=== PATIENT | female | born 1955 | race Caucasian/White ===

== ENCOUNTER 2017-05-19 09:13 | Inpatient (IN) | payer SELFPAY ==
[2017-05-19] VITALS (10 sets, daily range): BP systolic 129–159; BP diastolic 85–100; PULSE 63–131; RESP 16–20; TEMP 98.2–98.6; O2SAT 98–100
[~2017-05-19 09:13] MED LIST: HYDR-2374 PO; LEVA750T PO; LISI-360 PO; LORTA5 PO; METR-1 PO
[2017-05-19] MEDS ORDERED: HYDR-3583 PO (09:28)
[2017-05-19] MEDS ORDERED: SODIUM CHLORIDE 0.9% FLUSH 10 ML FLUSH IVF PRN (09:30)
[2017-05-19] MEDS ORDERED: ASPIRIN 81 MG CHEW TAB PO ONE (09:30)
--- NOTE | 2017-05-19 09:56 | RADRPT ---
EXAM DATE/TIME: 05/19/2017 09:38 [place] COMPARISON: No previous studies available for comparison. INDICATIONS : Short of breath, heart racing. MEDICAL HISTORY : Hypertension. SURGICAL HISTORY : None. ENCOUNTER: Initial ACUITY: 1 day PAIN SCORE: 0/10 LOCATION: Bilateral chest FINDINGS: A single view of the chest demonstrates the lungs to be symmetrically aerated without evidence of mas s, infiltrate or effusion. The cardiomediastinal contours are unremarkable. Osseous structures are intact. CONCLUSION: Normal examination. 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 Red Grimm MD on May 19, 2017 at 9:55 Board Certified Radiologist. This report was verified electronically.
--- NOTE | 2017-05-19 10:00 | PD ---
HPI . Rapid heart rate Chief Complaint: Cardiac Complaint Time Seen by Provider: 09:30 Travel History International Travel<30 days: No Contact w/Intl Traveler<30days: No Traveled to known affect area: No History of Present Illness HPI This patient presents with chief complaint of a rapid heart rate. Onset was about 11:30 PM. It was associated with some shortness of breath. She also reports tingling of her fingertips and dizziness. She states that almost all of her symptoms are now resolved. She states that they started getting better about an hour ago when she decided to come to the hospital to get checked out. She states that her only residual symptom at this point is nervousness. She reports some previous similar episodes which were short-lived. She did not seek medical care for them. The patient reports no noted modifying factors. She states that the symptoms were severe for her now resolved. PFSH Past Medical History Arthritis: Yes (RHEUM SPINE) Cardiovascular Problems: Yes Endocrine: No Gastrointestinal Disorders: No Genitourinary: No Hypertension: Yes Musculoskeletal: Yes Neurologic: No Reproductive: Yes (ABNORMAL BREAST EXAMS) Respiratory: No Past Surgical History Appendectomy: Yes Section: Yes Other Surgery: No Social History Alcohol Use: Yes (2-3 DRINKS SOCIALLY) Tobacco Use: Yes (1 PPD) Substance Use: No Allergies-Medications (Allergen,Severity, Reaction): Coded Allergies: No Known Allergies (Unverified , 05/19/17) Reported Meds & Prescriptions Reported Meds & Active Scripts Active Reported Hydrocodone-Acetaminophen 10-325 mg Tab 1 Tab PO Q4H PRN Review of Systems Except as stated in HPI: all other systems reviewed are Neg General / Constitutional: No: Fever, Chills Eyes: No: Blurred Vision HENT: Positive: Lightheadedness, No: Headaches Cardiovascular: Positive: Chest Pain or Discomfort Respiratory: Positive: Shortness of Breath Gastrointestinal: No: Nausea, Vomiting Musculoskeletal: Positive: Pain (chronic low back pain) Neurologic: Positive: Paresthesia Psychiatric: Positive: Anxiety Physical Exam Narrative GENERAL: This patient is awake and alert and in no acute distress. SKIN: Warm and dry. The skin is slightly thickened and wrinkle compatible with skilled nursing sun exposure. HEAD: Atraumatic. Normocephalic. EYES: Pupils equal and round. Extraocular movements are intact. ENT: No nasal bleeding or discharge. Mucous membranes pink and moist. NECK: Trachea midline. Neck is supple. CARDIOVASCULAR: Regular rhythm with a sinus tachycardia at about 110. RESPIRATORY: No accessory muscle use. Lungs are clear with full air movement throughout. GASTROINTESTINAL: Abdomen soft, non-tender, nondistended. MUSCULOSKELETAL: No obvious deformities. No edema. NEUROLOGICAL: Awake and alert. No obvious cranial nerve deficits. Motor grossly within normal limits. Normal speech. PSYCHIATRIC: Appropriate mood and affect; insight and judgment normal. Data Data Last Documented VS Vital Signs Date Time Temp Pulse Resp B/P Pulse Ox O2 Delivery O2 Flow Rate FiO2 05/19/17 09:49 101 17 129/88 98 Room Air 05/19/17 09:29 98.6 Orders Ckmb (Isoenzyme) Profile (05/19/17 09:30) Complete Blood Count With Diff (05/19/17 09:30) Comprehensive Metabolic Panel (05/19/17 09:30) D-Dimer (05/19/17 09:30) Magnesium (Mg) (05/19/17 09:30) Prothrombin Time / Inr (Pt) (05/19/17 09:30) Act Partial Throm Time (Ptt) (05/19/17 09:30) Troponin I (05/19/17 09:30) Chest, Single Ap (05/19/17 09:30) Ecg Monitoring (05/19/17 09:30) Iv Access Insert/Monitor (05/19/17 09:30) Oximetry (05/19/17 09:30) Aspirin Chew (Aspirin Chew) (05/19/17 09:30) Sodium Chloride 0.9% Flush (Ns Flush) (05/19/17 09:30) Thyroid Stimulating Hormone (05/19/17 09:30) Holter Monitor Recording (05/19/17 ) CKMB (05/19/17 09:35) CKMB% (05/19/17 09:35) Heparin Infusion TRAMAINE.Q1H (05/19/17 10:39) Heparin Inj (Heparin Inj) (05/19/17 10:45) Heparin Inj (Heparin Inj) (05/19/17 16:45) Heparin Inj (Heparin Inj) (05/19/17 16:45) Heparin-D5w Inj (Heparin-D5w Inj) (05/19/17 10:45) Act Partial Throm Time (Ptt) (05/19/17 10:39) Cbc No Diff, Includes Plts (05/19/17 10:39) Cbc No Diff, Includes Plts (05/22/17 06:00) Act Partial Throm Time (Ptt) (05/19/17 17:39) Occult Blood (Hemoccult) Stool (05/19/17 10:39) Metoprolol Tartrate (Lopressor) (05/19/17 10:45) Diet Npo Except Meds (05/19/17 Lunch) Labs Laboratory Tests Test 05/19/17 09:35 White Blood Count 8.8 TH/MM3 Red Blood Count 3.99 MIL/MM3 Hemoglobin 15.3 GM/DL Hematocrit 45.1 % Mean Corpuscular Volume 113.0 FL Mean Corpuscular Hemoglobin 38.2 PG Mean Corpuscular Hemoglobin 33.8 % Concent Red Cell Distribution Width 16.7 % Platelet Count 242 TH/MM3 Mean Platelet Volume 8.6 FL Neutrophils (%) (Auto) 66.7 % Lymphocytes (%) (Auto) 21.6 % Monocytes (%) (Auto) 7.4 % Eosinophils (%) (Auto) 0.1 % Basophils (%) (Auto) 4.2 % Neutrophils # (Auto) 5.8 TH/MM3 Lymphocytes # (Auto) 1.9 TH/MM3 Monocytes # (Auto) 0.7 TH/MM3 Eosinophils # (Auto) 0.0 TH/MM3 Basophils # (Auto) 0.4 TH/MM3 CBC Comment DIFF FINAL Differential Comment Prothrombin Time 11.4 SEC Prothromb Time International 1.0 RATIO Ratio Activated Partial 26.8 SEC Thromboplast Time D-Dimer Quantitative (PE/DVT) 0.30 MG/L FEU Sodium Level 140 MEQ/L Potassium Level 3.2 MEQ/L Chloride Level 104 MEQ/L Carbon Dioxide Level 27.1 MEQ/L Anion Gap 9 MEQ/L Blood Urea Nitrogen 8 MG/DL Creatinine 0.82 MG/DL Estimat Glomerular Filtration 71 ML/MIN Rate Random Glucose 117 MG/DL Calcium Level 8.3 MG/DL Magnesium Level 1.0 MG/DL Total Bilirubin 3.2 MG/DL Aspartate Amino Transf 135 U/L (AST/SGOT) Alanine Aminotransferase 59 U/L (ALT/SGPT) Alkaline Phosphatase 119 U/L Total Creatine Kinase 155 U/L Creatine Kinase MB 12.2 NG/ML Troponin I 1.01 NG/ML Total Protein 7.3 GM/DL Albumin 4.1 GM/DL Thyroid Stimulating Hormone 1.190 uIU/ML 3rd Gen [facility] Medical Decision Making Medical Screen Exam Complete: Yes Emergency Medical Condition: Yes Medical Record Reviewed: Yes (this patient has no significant chronic medical issues.) Interpretation(s) EKG shows a sinus rhythm with a ventricular rate of 107. Poor R-wave progression. No acute ischemic changes. She has no previous EKGs for comparison. Differential Diagnosis Differential diagnosis of palpitations includes but is not limited to anxiety, SVT, aVF with RVR, VT, sinus tachycardia, PVCs Narrative Course This patient presents with chief complaint of a rapid heart rate which lasted all night long. It has now resolved. She had some associated shortness of breath and paresthesias of her fingertips. I suspect either PSVT has now spontaneously resolved or anxiety. I have initiated a cardiac workup here in the emergency department. This includes a TSH. I have ordered a Holter monitor in anticipation of discharge. CBC & BMP Diagram 05/19/17 09:35 All of her LFTs are elevated. Troponin is 1.01. TSH is normal. D-dimer is normal. This patient has had a NSTEMI. Critical Care Narrative Aggregate critical care time was 30 minutes. Time to perform other separately billable procedures was not included in the critical care time. My time did not include minutes spent treating any other patients simultaneously or on activities that did not directly contribute to the patient's treatment. The services I provided to this patient were to treat and/or prevent clinically significant deterioration due to NSTEMI I provided critical care services requiring my management, as noted below: Chart data review, documentation time, medication orders and management, vital sign assessments/reviewing monitor data, ordering and reviewing lab tests, ordering and interpreting/reviewing x-rays and diagnostic studies, care of the patient and discussion of the patient with the admitting physicians Physician Communication Physician Communication Discussed with Dr. Lr. He will plan to take her to the catheter lab today. He has asked me to keep her nothing by mouth. She needs to be admitted to [facility]. She will be heparinized and will be given a first dose of metoprolol. She has already had aspirin. Dr. Thomas will admit. Diagnosis Primary Impression: Tachycardia Additional Impression: NSTEMI (non-ST elevated myocardial infarction) Admitting Information Admitting Physician Requests: Admit Patient Instructions: General Instructions, Supraventricular Tachycardia (DC) Condition: Stable Shannon Zabala MD May 19, 2017 10:00
[2017-05-19 10:03] LABS: AUTOMATED NEUTROPHIL # 5.8 TH/MM3 (1.8-7.7); BASOPHIL # 0.4 TH/MM3 (0-0.2); BASOPHIL % 4.2 % (0.0-2.0); EOSINOPHIL % 0.1 % (0.0-4.0); HEMATOCRIT 45.1 % (35.0-46.0); HEMO FLAGS DIFF FINAL; LYMPH % 21.6 % (9.0-44.0); LYMPHOCYTE # 1.9 TH/MM3 (1.0-4.8); MEAN CORPUSCULAR HEMOGLOBIN 38.2 PG (27.0-34.0); MEAN CORPUSCULAR HGB CONC 33.8 % (32.0-36.0); MONO % 7.4 % (0.0-8.0); NEUT % 66.7 % (16.0-70.0); PLATELET COUNT 242 TH/MM3 (150-450); RED BLOOD COUNT 3.99 MIL/MM3 (4.00-5.30); RED CELL DISTRIBUTION WIDTH 16.7 % (11.6-17.2); WHITE BLOOD COUNT 8.8 TH/MM3 (4.0-11.0)
[2017-05-19 10:15] LABS: CHLORIDE 104 MEQ/L (98-107); POTASSIUM 3.2 MEQ/L (3.5-5.1); SODIUM (NA) 140 MEQ/L (136-145)
[2017-05-19 10:18] LABS: ANION GAP 9 MEQ/L (5-15); BICARBONATE 27.1 MEQ/L (21.0-32.0); BLOOD UREA NITROGEN 8 MG/DL (7-18)
[2017-05-19 10:25] LABS: APTT (PATIENT) 26.8 SEC (24.3-30.1); PROTHROMBIN TIME - PATIENT 11.4 SEC (9.8-11.6)
[2017-05-19 10:26] LABS: ALT (GPT) 59 U/L (10-53); AST (GOT) 135 U/L (15-37); GLOMERULAR FILTRATION RATE 71 ML/MIN (>89)
[2017-05-19 10:27] LABS: TOTAL BILIRUBIN ADULT 3.2 MG/DL (0.2-1.0)
[2017-05-19 10:28] LABS: ALKALINE PHOSPHATASE 119 U/L (45-117); CREATINE KINASE 155 U/L (26-192)
[2017-05-19 10:40] LABS: CKMB 12.2 NG/ML (0.5-3.6)
[2017-05-19] MEDS ORDERED: HEPARIN-D5W INJ 250 ML IV SCH (10:45)
[2017-05-19] MEDS ORDERED: METOPROLOL TARTRATE 25 MG TAB PO ONE (10:45)
[2017-05-19] MEDS ORDERED: HEPARIN SODIUM - IV 10,000 UNITS/10 ML VIAL IV ONE (10:45)
[2017-05-19] MEDS ORDERED: LORazepam 2 MG/ML VIAL IV PUSH PRN ×4 (11:15)
[2017-05-19] MEDS ORDERED: POTASSIUM CHLORIDE INJ 20 MEQ in SODIUM CHLOR 0.9% 1000 ML INJ 1,000 ML IV SCH (11:15)
[2017-05-19] MEDS ORDERED: MAGNESIUM SULFATE 1 GM PREMIX 100 ML IV ONE (11:15)
[2017-05-19] MEDS ORDERED: LORazepam 1 MG TAB PO PRN (11:15)
[2017-05-19] MEDS ORDERED: FLUMAZENIL 0.5 MG/5 ML VIAL IV PUSH PRN (11:15)
[2017-05-19] MEDS ORDERED: LORazepam 2 MG TAB PO PRN (11:15)
--- NOTE | 2017-05-19 11:27 | HHI.HP ---
[facility] Service [facility] Primary Care Physician No Primary Care Physician Admission Diagnosis NSTEMI Diagnoses: (1) NSTEMI (non-ST elevated myocardial infarction) Diagnosis: Principal Chief Complaint: chest pain Travel History International Travel<30 Days: No Contact w/Intl Traveler <30 Da: No Traveled to Known Affected Are: No History of Present Illness patient is a 61 y/o female who presented to ER with chest pain. she says that she started to have some palpitation last night. she had some ' chest pressure and discomfort' at the time. it lasted till this morning. pain was associated with nausea, sob and diaphoresis. she says that this morning when she woke up she couldn't keep her balance when she decided to come to ER. she denies any chest pain in the past. Review of Systems Constitutional: DENIES: Fever, Weight loss, Chills, Night Sweats Eyes: DENIES: Blurred vision, Diplopia, Vision loss, Double Vision Ears, nose, mouth, throat: DENIES: Tinnitus, Vertigo, Throat pain, Epistaxis Respiratory: COMPLAINS OF: Shortness of breath, DENIES: Apneas, Cough, Snoring , Wheezing, Hemoptysis, Sputum production Cardiovascular: COMPLAINS OF: Chest pain, Palpitations, DENIES: Syncope, PND, Lower Extremity Edema, Orthopnea, Claudication Gastrointestinal: DENIES: Abdominal pain, Black stools, Bloody stools, Constipation, Diarrhea, Nausea, Vomiting, Difficulty Swallowing, Anorexia Genitourinary: DENIES: Urinary frequency, Urgency, Hematuria, Dysuria Musculoskeletal: DENIES: Joint pain, Muscle aches, Stiffness, Joint Swelling Integumentary: DENIES: Rash Neurologic: DENIES: Abnormal gait, Headache, Localized weakness, Paresthesias, Seizures, Speech Problems, Tremor, Poor Balance Psychiatric: DENIES: Anxiety, Confusion, Mood changes, Depression, Hallucinations, Agitation, Suicidal Ideation, Homicidal Ideation, Delusions Past Family Social History Past Medical History hypertension? Past Surgical History pancreatic abscess drainage Reported Medications hydrocodone-acetaminophen Allergies: Coded Allergies: No Known Allergies (Unverified , 05/19/17) Active Ordered Medications Current Medications Aspirin (Aspirin Chew) 324 mg ONCE ONCE PO Last administered on 05/19/17 09: 45; Start 05/19/17 at 09:30; Stop 05/19/17 at 09:34; Status DC Sodium Chloride (NS Flush) 2 ml UNSCH PRN IVF FLUSH AFTER USING IV ACCESS; Start 05/19/17 at 09:30 Heparin Sodium (Porcine) (Heparin Inj) 3,300 units ONCE ONCE IV Last administered on 05/19/17 10:53; Start 05/19/17 at 10:45; Stop 05/19/17 at 10:46 ; Status DC Heparin Sodium (Porcine) (Heparin Inj) 5,000 units UNSCH PRN IV APTT LESS THAN 25; Start 05/19/17 at 16:45 Heparin Sodium (Porcine) 2500 units 2,500 units UNSCH PRN IV APTT 25 TO 39; Start 05/19/17 at 16:45 Heparin Sodium/ Dextrose (Heparin-D5W Inj) 250 ml @ 0 mls/hr TITRATE IV Last administered on 05/19/17 10:55; Start 05/19/17 at 10:45 Metoprolol Tartrate (Lopressor) 25 mg ONCE ONCE PO Last administered on 10:50; Start 05/19/17 at 10:45; Stop 05/19/17 at 10:46; Status DC Family History heart disease in brother in his 50's. Social History smokes a pack a day- drinks daily. Physical Exam Vital Signs Vital Signs Date Time Temp Pulse Resp B/P Pulse Ox O2 Delivery O2 Flow Rate FiO2 05/19/17 10:50 110 17 159/100 98 Room Air 05/19/17 09:49 101 17 129/88 98 Room Air 05/19/17 09:30 17 98 Room Air 05/19/17 09:29 98.6 05/19/17 09:25 131 20 150/91 100 Physical Exam GENERAL: This is a well-nourished, well-developed patient, in no apparent distress. SKIN: No rashes, ecchymoses or lesions. Cool and dry. HEAD: Atraumatic. Normocephalic. No temporal or scalp tenderness. EYES: Pupils equal round and reactive. Extraocular motions intact. No scleral icterus. No injection or drainage. ENT: Nose without bleeding, purulent drainage or septal hematoma. Throat without erythema, tonsillar hypertrophy or exudate. Uvula midline. Airway patent. NECK: Trachea midline. No JVD or lymphadenopathy. Supple, nontender, no meningeal signs. CARDIOVASCULAR: tachycardic. RESPIRATORY: Clear to auscultation. Breath sounds equal bilaterally. No wheezes , rales, or rhonchi. GASTROINTESTINAL: Abdomen soft, non-tender, nondistended. No hepato-splenomegaly , or palpable masses. No guarding. MUSCULOSKELETAL: Extremities without clubbing, cyanosis, or edema. No joint tenderness, effusion, or edema noted. No calf tenderness. Negative Homans sign bilaterally. NEUROLOGICAL: Awake and alert. Cranial nerves II through XII intact. Motor and sensory grossly within normal limits. Five out of 5 muscle strength in all muscle groups. Normal speech. Laboratory Laboratory Tests Test 05/19/17 09:35 White Blood Count 8.8 Red Blood Count 3.99 Hemoglobin 15.3 Hematocrit 45.1 Mean Corpuscular Volume 113.0 Mean Corpuscular Hemoglobin 38.2 Mean Corpuscular Hemoglobin 33.8 Concent Red Cell Distribution Width 16.7 Platelet Count 242 Mean Platelet Volume 8.6 Neutrophils (%) (Auto) 66.7 Lymphocytes (%) (Auto) 21.6 Monocytes (%) (Auto) 7.4 Eosinophils (%) (Auto) 0.1 Basophils (%) (Auto) 4.2 Neutrophils # (Auto) 5.8 Lymphocytes # (Auto) 1.9 Monocytes # (Auto) 0.7 Eosinophils # (Auto) 0.0 Basophils # (Auto) 0.4 CBC Comment DIFF FINAL Differential Comment Prothrombin Time 11.4 Prothromb Time International 1.0 Ratio Activated Partial 26.8 Thromboplast Time D-Dimer Quantitative (PE/DVT) 0.30 Sodium Level 140 Potassium Level 3.2 Chloride Level 104 Carbon Dioxide Level 27.1 Anion Gap 9 Blood Urea Nitrogen 8 Creatinine 0.82 Estimat Glomerular Filtration 71 Rate Random Glucose 117 Calcium Level 8.3 Magnesium Level 1.0 Total Bilirubin 3.2 Aspartate Amino Transf 135 (AST/SGOT) Alanine Aminotransferase 59 (ALT/SGPT) Alkaline Phosphatase 119 Total Creatine Kinase 155 Creatine Kinase MB 12.2 Troponin I 1.01 Total Protein 7.3 Albumin 4.1 Thyroid Stimulating Hormone 1.190 3rd Gen Result Diagram: 05/19/1793405/19/17934 Imaging Last Impressions Chest X-Ray 05/19/17929 Signed Impressions: Service Date/Time: Friday, May 19, 2017 09:38 - CONCLUSION: Normal examination. 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 Red Grimm MD EKG; sinus rhythm with no acute ST-T changes. Assessment and Plan Assessment and Plan A/P - NSTEMI received aspirin and a dose of metoprolol- started on heparin drip cardiology consulted and plan for cardiac cath later today- check the lipid profile. -hypokalemia/hypomagnesemia; will replace and monitor -alcohol abuse; watch for withdrawal- start on CIWA protocol- -elevated LFT's- due to alcohol- will monitor -DVT prophylaxis; on heparin drip Discussed Condition With ER physician and the patient. Physician Certification 2 Midnight Certification Type: Admission for Inpatient Services Order for Inpatient Services The services are ordered in accordance with Medicare regulations or non- Medicare payer requirements, as applicable. In the case of services not specified as inpatient-only, they are appropriately provided as inpatient services in accordance with the 2-midnight benchmark. Estimated LOS (days): 2 days is the estimated time the patient will need to remain in the hospital, assuming treatment plan goals are met and no additional complications. Post-Hospital Plan: Home Rin Thomas MD May 19, 2017 11:27
--- NOTE | 2017-05-19 11:48 | EKG ---
Date Performed: 05/19/2017 Time Performed: 09:23:36 PTAGE: 61 years EKG: SINUS TACHYCARDIA SEPTAL MYOCARDIAL INFARCTION ABNORMAL ECG INTERPRETATION BASED ON A DEFAU LT AGE OF 39 YEARS NO PREVIOUS TRACING DOCTOR: Red Lr Interpretating Date/Time 05/19/2017 11:46:42
[2017-05-19] MEDS ORDERED: NS 1000P @30 MLS/HR (KVO) IV SCH (12:45)
--- NOTE | 2017-05-19 13:10 | MB ---
cc: ANA MARIA BARRERA DATE OF CONSULTATION: 05/18/2017 INDICATIONS Non-ST elevation NC. HISTORY OF PRESENT ILLNESS This is a 61-year-old female who was in her usual state of health up until about 11:30 last night. She developed a tightness in the chest. She said it was not on and off and waxing and waning. She has some difficulty sleeping and it came on several times throughout the night. It was associated with tingling of the fingertips, shortness of breath, palpitations. This morning she awoke and she actually had difficulty walking associated with chest pain and shortness of breath and came into the emergency department at [facility]. There, an electrocardiogram was relatively unremarkable. The first troponin was elevated. She is currently chest pain-free. No prior history of coronary disease. She was transferred over the [facility] for anticipation of cardiac catheterization. PAST MEDICAL HISTORY 1. Hypertension 2. Tobacco abuse PAST SURGERIES 1. History of pancreatic abscess drainage. 2. Cc-section MEDICATIONS Hydrocodone ALLERGIES NO KNOWN DRUG ALLERGIES. SOCIAL HISTORY She smokes a pack a day and also drinks daily. FAMILY HISTORY Does have a family history of a brother who had heart disease early in life at around age 50, otherwise no early coronary disease or sudden cardiac . REVIEW OF SYSTEMS A 12-point review of some was performed and is negative unless otherwise as noted in the history of present illness. PHYSICAL EXAMINATION Temperature is normal. Heart rate is 100, blood pressure is 145/85, mmHg. GENERAL: Alert and oriented x3 in no distress. HEENT: Exam shows pupils reactive to light and accommodation. Extraocular movements are intact. No elevation or jugular venous distension. No thyromegaly or lymphadenopathy. No carotid bruits. LUNGS: Clear to auscultation bilaterally. CARDIOVASCULAR: Regular rate and rhythm without murmurs, rubs, gallops. ABDOMEN: Soft, nontender, nondistended with equal bowel sounds. No hepatosplenomegaly. EXTREMITIES: Show no clubbing, signs or edema. Good peripheral pulses. NEUROLOGIC: Cranial nerves intact. Motor and sensory grossly intact. LABORATORY DATA WBC 8.8, hemoglobin 15.3, platelet count 242, INR is 1. Sodium 140, potassium 3.2, BUN is 8, creatinine 0.82, troponin is 1.01. Electrocardiogram, sinus tachycardia, ST depression anterolaterally. ASSESSMENT 1. [id number] NC 2. Tobacco abuse 3. Hypertension PLAN Symptoms are suggestive of acute coronary syndrome. Electrocardiogram shows ST depression and troponin is elevated. We will plan for cardiac catheterization. Discussed the risks, benefits and alternatives with the patient. The patient received aspirin in addition to heparin. We will attempt from a radial approach. We will also obtain a 2-D echocardiogram. MD MARGRET Matthews/LALO /12:47 PM /2:15 PM
[2017-05-19] MEDS ORDERED: HEPARIN-NS/PF INJ 500 ML ONE (14:36)
[2017-05-19] MEDS ORDERED: NITROGLYCERIN INJ 5 ML ONE (14:37)
[2017-05-19] MEDS ORDERED: HEPARIN SODIUM - IV 10,000 UNITS/10 ML VIAL ONE (14:37)
[2017-05-19] MEDS ORDERED: MIDAZOLAM HCL 2 MG/2 ML VIAL ONE ×3 (14:37→15:07)
--- NOTE | 2017-05-19 15:26 | CATHPROC ---
L[facility] HIS Report Study Information Study Number Admission Scheduled Start Study Start [id number] May 19 2017 10:59AM 05/19/2017 May 19 2017 2:18PM Study Type [place] [facility] Left/Possible PCI Cardiac Catheterization Admit Source Facility Department Transfer in from another acute care [facility] Physician and Clinical Staff Initial Red Capellan Towel Cabinet Repairer Cathie White,RN Recorder Maddie Campbell,RT(R) Carmina Mccord,RT(R) (BS) Procedures Performed Procedure Location (Site) Vessel Name Coronary Angiograms LCA Left Coronary Coronary Angiograms RCA Right Coronary L Heart Cath Wire insertion Radial (right) Radial Art. Equipment Time Mold Dresser Description Size Mfg Part Number Used/Scraped [id number] 14:59 ARGON/MAXXIM DRAPE, BRACHIAL REINFORCED * Used *[id number] TRANSDUCER, TRUWAVE [id number] 14:59 MARTINEZ WHITE * Used W/STOCKCOCK *[id number] WIRE, CHOICE PT EX. SUPPORT [id number] 15:04 [employer] 180CM Used 182CM *[id number] [id number] *[id number] 534-523T *[id number] [id number] *[id number] 14:59 MEDLINE INDUSTRIES PACK, CCL CUSTOM * Used *[id number] 14:59 [employer] PACER PEN, SKIN DUAL W/ RULER * Used *[id number] BAND, RADIAL COMPRESSION TR [id number] 15:17 Danger MEDICAL 24CM Used SHORT 24 *[id number] 14:59 Danger MEDICAL WIRE, 3MMJ .035 180CM 180CM Used *[id number] 14:59 NAMIC MANIFOLD, 4 PORT * Used *[id number] 14:59 NYCOMED OMNIPAQUE, 350 MG, 150ML 150ML [id number] Used 15:14 NYCOMED OMNIPAQUE, 350 MG, 150ML 150ML [id number] Used [id number] 14:59 WIGGINS [employer] BLANKET,WARM AIR CCL * Used *[id number] 14:59 TERUMO MEDICAL SHEATH, FR5 TERUMO (10CM) FR 5 [id number] Used Equipment Model, Serial, Lot Number and Expiration Data Description Model Number Serial Number Lot Number Expiration Date WIRE, CHOICE PT EX. SUPPORT [id number] 12-09-2018 182CM Labs Hgb (g/dl) Hct (%) RBC (MIL/MM3) WBC (l/cumm) Platelets (thousands) 11.60-17.00 35.00-51.00 4.00-5.90 4.00-11.00 150.00-450.00 15.3 45.1 3.9 8.8 242 Glucose (mg/dl) BUN (mg/dl) Creatinine (mg/dl) BUN:Creatinine (1:x) 74.00-106.00 7.00-18.00 0.50-1.30 10.00-20.00 117 8 0.8 10 Na (meq/l) K (meq/l) Cl (meq/l) CO2 (mmol/L) 136.00-145.00 3.50-5.10 98.00-107.00 21.00-32.00 140 3.2 104 27.1 PT (sec) PTT (sec) INR (PTT:PT) 9.80-11.60 24.30-30.10 0.90-1.10 11.4 26.8 1 Troponin I (ng/ml) CPK (u/l) CPK-MB (ng/ML) 0.02-0.05 26.00-308.00 0.50-3.60 1.01 155 12.2 Medication Medication Total Dose (Bolus/Oral) Medication Total Dosage/Unit 1% XYLOCAINE 20 mL FENTANYL 150 mcg HEPARIN 3000 units RADIAL COCKTAIL 5 mL (Bolus) VERSED 5 mg Medications (Bolus/Oral) Medication Time Given Dosage/Unit Administered By Reason VERSED 05/19/2017 2:51:43 PM 1 mg Christopher, Cathie 1 mg VERSED given in lab by Cathie White RN via Peripheral IV. FENTANYL 05/19/2017 2:52:30 PM 50 mcg Joshua Whitea 50 mcg FENTANYL given in lab by Cathie White, CHRISTINA via Peripheral IV. VERSED 05/19/2017 2:53:19 PM 1 mg Joshua Whitea 1 mg VERSED given in lab by Cathie White, CHRISTINA via Peripheral IV. 1% XYLOCAINE 05/19/2017 2:57:37 PM 20 mL Red Lr 20 mL 1% XYLOCAINE given in lab by Red Lr in Right Radial via Subcutaneous. HEPARIN 05/19/2017 2:58:43 PM 3000 units Cathie White 3000 units HEPARIN given in lab by Cathie White RN via Peripheral IV. RADIAL COCKTAIL 05/19/2017 2:59:39 PM 5 mL (Bolus) Red Lr 5 mL (Bolus) RADIAL COCKTAIL given in lab by Red Lr via Radial. Using [Solution Name]. 200 NI TRO VERSED 05/19/2017 3:03:10 PM 2 mg Joshua Whitea 2 mg VERSED given in lab by Cathie White RN via Peripheral IV. FENTANYL 05/19/2017 3:04:28 PM 50 mcg Christopher, Cathie 50 mcg FENTANYL given in lab by Cathie White RN via Peripheral IV. VERSED 05/19/2017 3:09:14 PM 1 mg Joshua Whitea 1 mg VERSED given in lab by Cathie White RN via Peripheral IV. FENTANYL 05/19/2017 3:10:23 PM 50 mcg Joshua Whitea 50 mcg FENTANYL given in lab by Cathie White RN via Peripheral IV. Medication (Drip) Medication Time Given Dosage/Unit Concentration/Unit Diluent (ml) Solution IV Solutions 05/19/2017 2:50:47 PM 0 mL (IV) 500 NaCl .9 Patient arrived on IV Solutions in Left Antecubital via Peripheral IV. Pump/Drip Flow = 20 ml/hr usin g NaCl .9. Initial Case Assessment Cardiovascular HR Rhythm NIBP 89 REG 190/109 Edema Present Skin color Skin None Normal Warm Circulatory - Right Pulses Dorsalis Pedis Femoral 2 2 Scale (0,1,2,3,4,d) Circulatory - Left Pulses Dorsalis Pedis Femoral 2 2 Scale (0,1,2,3,4,d) Circulatory - Lower Extremities Color Lower Right Color Lower Left Normal Normal Neurological State Oriented to time-place- Alert Moves all extremities person Respiration - General Respiration Rate SpO2 (%) (B/min) 18 100 Final Case Assessment Cardiovascular HR Rhythm NIBP Chest Pain 94 REG 131/68 0 Edema Present Skin color Skin None Normal Warm Circulatory - Right Pulses Dorsalis Pedis Femoral 2 2 Scale (0,1,2,3,4,d) Circulatory - Left Pulses Dorsalis Pedis Femoral 2 2 Scale (0,1,2,3,4,d) Circulatory - Lower Extremities Color Lower Right Color Lower Left Normal Normal Neurological State Oriented to time-place- Alert Moves all extremities person Respiration - General Respiration Rate SpO2 (%) (B/min) 20 96 Chronological Log Time Study Chronological Log 14:31:48 Patient arrived via Bed. 14:31:50 Patient Name, D.O.B, / Armband Verified By R.N. Vitals capture started with the following parameters, Patient=Adult, Interval=5 min, Initial Pr pmoxiv=729 mmHg, 14:40:06 Deflation Rate=5 mmHg 14:41:12 HR=93 bpm, FSUK=918/116 mmhg, AhC3=450.0 %, Resp=16 B/min, Pain=0, Deepak=10, Choe=2 14:45:46 HR=88 bpm, YGQR=010/107 mmhg, WkW4=389.0 %, Resp=13 B/min, Pain=0, Deepak=10, Choe=2 14:47:50 Reference ECG taken 14:48:53 Consent signed by the physician and the patient and verified by the [facility] staff. 14:48:54 Pre-op and post- op instructions given; patient acknowledges understanding of instructions. 14:48:54 Verbal Stimulation=2 Physical Stimulation=2 Airway=2 Respiration=2 TOTAL=8. (0=absent, 1=li mited, 2=present) Allens test performed on the right radial and ulnar artery BY Jose BAJWA WITH A POSITIVE RESULT 14:49:50 14:50:24 Patient has been NPO for More than 6Hrs. 14:50:25 Skin Breakdown-NONE 14:50:37 A # 20 IV was noted in the Antecubital (left). Grade = 0 14:50:39 MD arrived. 14:50:46 HR=87 bpm, OYLE=254/109 mmhg, VtB0=062.0 %, Resp=18 B/min, Pain=0, Deepak=10, Choe=2 14:50:47 Patient arrived on IV Solutions in Left Antecubital via Peripheral IV. Pump/Drip Flow = 20 ml/hr using NaCl .9. 14:51:06 History and physical on the chart or being dictated. Assessment: Initial Case, HR=89 BPM, Rhythm=REG, SBRA=109/109 mmhg, Edema=None, Color=Normal, S kin = Warm Right Pulses: Jose Ped=2, Femoral=2 Left Pulses: Jose Ped=2, Femoral=2 14:51:09 Lower Right Extremities: Color=Normal Lower Left Extremities: Color=Normal Neurological: State=Alert, Ox3, DIAZ Respiration: Resp=18 B/min, LpK4=667 % 14:51:43 1 mg VERSED given in lab by Cathie White, CHRISTINA via Peripheral IV. 14:52:17 Right groin prepped with 2% chlorhexidine, and with a 3 min. waiting time. 14:52:19 Right radial, prepped with 2% chlorhexidine, and with a 3 min. waiting time. 14:52:30 50 mcg FENTANYL given in lab by Cathie White, CHRISTINA via Peripheral IV. 14:53:19 1 mg VERSED given in lab by Cathie White, CHRISTINA via Peripheral IV. Time Out. Correct patient, correct procedure,correct physician, ,power injector loaded with con trast with surgical team 14:55:12 present. Time Out Concurred by MD, individual staff and SENIOR DATASTAGE DEVELOPER in procedure 14:55:15 Pressure channel 1 zeroed. 14:55:49 HR=86 bpm, TWPY=458/107 mmhg, QbJ9=013.0 %, Resp=15 B/min, Pain=0, Deepak=10, Choe=2 14:57:24 Case Start 14:57:29 Verbal Stimulation=2 Physical Stimulation=2 Airway=2 Respiration=2 TOTAL=8. (0=absent, 1=li mited, 2=present) 14:57:37 20 mL 1% XYLOCAINE given in lab by Red Lr in Right Radial via Subcutaneous. 14:58:11 Access site was Radial Artery.RT 14:58:20 A wire was inserted via Radial (right). 14:58:30 A SHEATH, FR5 TERUMO (10CM) FR 5 was advanced into the Radial (right) using the Percutaneou s technique. 14:58:43 3000 units HEPARIN given in lab by Cathie White, CHRISTINA via Peripheral IV. 14:59:39 5 mL (Bolus) RADIAL COCKTAIL given in lab by Red Lr via Radial. Using [Solution Nam e]. 200 NITRO 15:00:46 HR=93 bpm, DGDZ=417/103 mmhg, SpO2=98.0 %, Resp=22 B/min, Pain=0, Deepak=10, Choe=2 A JR 5.0 INFINITI CATHETER FR 5 was advanced over a wire. OMNIPAQUE, 350 MG, 150ML 150ML was us ed for 15:01:42 injections. 15:03:10 2 mg VERSED given in lab by Cathie White, CHRISTINA via Peripheral IV. 15:04:28 50 mcg FENTANYL given in lab by Cathie White RN via Peripheral IV. 15:04:43 The previous wire was exchanged for a WIRE, CHOICE PT EX. SUPPORT 182CM 180CM. 15:05:05 Wire removed 15:05:29 The previous wire was exchanged for a WIRE, 3MMJ .035 180CM 180CM. 15:05:41 HR=93 bpm, VBUG=628/92 mmhg, SpO2=97.0 %, Resp=23 B/min, Pain=0, Deepak=10, Choe=2 Recorded Pressure: LV, HR=92, Condition=Condition 1 15:06:44 (Left Ventricle) LV 99/3/6 Recorded Pressure: LV, Ao, HR=93, Condition=Condition 1 15:07:04 (Left Ventricle) LV 112/-1/5, (Aorta) Ao 106/63/83 Recorded Pressure: Ao, HR=97, Condition=Condition 1 15:07:48 (Aorta) Ao 120/78/97 15:08:06 The RCA was injected and visualized at various angles. OMNIPAQUE, 350 MG, 150ML 150ML used . After removing the current catheter a JL 3.5 INFINITI CATHETER FR 5 was advanced over a WIRE, 3 MMJ .035 180CM 15:08:58 180CM. 15:09:14 1 mg VERSED given in lab by Cathie White, CHRISTINA via Peripheral IV. 15:10:23 50 mcg FENTANYL given in lab by Cathie White, CHRISTINA via Peripheral IV. 15:10:40 HR=94 bpm, USPZ=682/98 mmhg, SpO2=96.0 %, Resp=20 B/min, Pain=0, Deepak=10, Choe=2 15:11:32 The LCA was injected and visualized at various angles. OMNIPAQUE, 350 MG, 150ML 150ML use d. After removing the current catheter a PIGTAIL ANG. INFINITI CATHETER FR 4 was advanced over a WIRE, 3MMJ .035 15:12:17 180CM 180CM. 15:15:41 HR=96 bpm, AGNO=404/68 mmhg, SpO2=96 %, Resp=20 B/min, Pain=0, Deepak=10, Choe=2 15:15:55 Catheter was removed 15:16:02 Case End Assessment: Final Case, HR=94 BPM, Rhythm=REG, VSRQ=160/68 mmhg, Chest Pain=0, Edema=None, Col or=Normal, Skin = Warm Right Pulses: Jose Ped=2, Femoral=2 Left Pulses: Jose Ped=2, Femoral=2 15:16:07 Lower Right Extremities: Color=Normal Lower Left Extremities: Color=Normal Neurological: State=Alert, Ox3, DIAZ Respiration: Resp=20 B/min, SpO2=96 % 15:16:42 Catheter(s) removed without difficulty Radial Compression Device Used. 15 mLs of air placed in BAND, RADIAL COMPRESSION TR SHORT 24 2 4CM. Affected 15:16:46 hand 96 % O2 saturation. 15:17:04 Case End 15:17:06 Sterile dressing applied to site 15:17:07 No case complications noted. 15:17:08 Cine recording checked. 15:17:11 Bedside Report will be given. 15:17:21 Contrast Scanned 15:17:24 A Left Heart Cath was performed. 15:17:[facility] 15[facility]17:29 Clinical correlaton risk stratification. 15:21:25 HR=93 bpm, VHPC=950/42 mmhg, SpO2=98.0 %, Resp=24 B/min, Pain=0, Deepak=10, Choe=2 End Study - Contrast Media Used In Study Contrast Total Opened (mL) Total Used (mL) Total Wasted (mL) Omnipaque 50 50 0 End Study - Maximum Contrast Load Max Contrast Load (mL) 340.9 End Study - Radiation Exposure Fluoro Time (minutes) 3.5 End Study - Sheaths Sheaths Pulled By Sheath Hold Time (min) Carmina Leal End Study - Patient Disposition Complications Transferred To No Outpatient Bed
[2017-05-19] MEDS ORDERED: MISC INFORMATION XX ONE (15:30)
[2017-05-19] MEDS ORDERED: PILL SPLITTER OTHER PRN (15:45)
[2017-05-19] MEDS ORDERED: BACITRACIN OINT 0.9 GM PKT TOP ONE (16:00)
[2017-05-19] MEDS ORDERED: HEPARIN SODIUM - IV 10,000 UNITS/10 ML VIAL IV PRN ×2 (16:45)
--- NOTE | 2017-05-19 17:15 | MA ---
cc: RED BARRERA MD DATE 05/19/17 PROCEDURE PERFORMED 1. Fluoroscopy with interpretation. 2. Left heart catheterization. 3. Left ventriculography. 4. Coronary angiography. METHOD Risks, benefits and alternatives discussed with the patient. The patient understood and consented to the procedure. PROCEDURE The patient brought to the catheterization lab, placed on the catheterization table. Right wrist was prepped and draped in sterile fashion. Right wrist anesthetized with 2% lidocaine. Right radial artery was cannulated and a 6-Tajik 11 cm sheath was placed out difficulty. LEFT HEART CATHETERIZATION 5-Tajik JR-5 catheter was advanced across the aortic valve without difficulty. Intraoperative hemodynamics measured 112/5 mmHg. LEFT VENTRICULOGRAPHY Left ventriculography was performed right anterior oblique using a 5-Tajik angled pigtail catheter and a 30 cc contrast injection good opacification. Left ventricular ejection fraction 65%. There is iatrogenic 1+ mitral regurgitation noted. No aortic stenosis by transaortic valvular pullback gradient. CORONARY GEOGRAPHY 1. Left main coronary is absent. There is separate ostium to left anterior descending and left circumflex coronary arteries. 2. Left anterior descending coronary had some minor luminal irregularities proximally. The remainder of the vessel is tortuous but angiographically normal. 3. Left circumflex gives rise to an obtuse marginal branch, angiographically normal. 4. The right coronary is a dominant vessel giving rise to the posterior descending branch, angiographically normal. CONCLUSION 1. Mild nonobstructive coronary artery disease. 2. Hyperdynamic left ventricular systolic function with normal left-sided filling pressures. PLAN The patient's symptoms are clearly not fixed obstructive coronary physiology. Her symptoms and with troponin bump are either related to vasospasm or possibly demand mediated secondary to an SVT as she did describe some palpitations and diaphoresis with tachycardia prior to the event. Will initiate aspirin and statin, in addition a low-dose calcium channel thanh for vasospasm. She will not tolerate beta thanh due to relative hypotension. If she has any further symptoms may consider outpatient Holter monitor. Red Barrera MD SM/EO /3:30 PM /5:06 PM SUSANA
[2017-05-19] MEDS ORDERED: IOHEXOL 350 MG/ML 50 ML BTL (for Cath Lab) OTHER ONE (17:20)
[2017-05-19 21:25] LABS: APTT (PATIENT) 26.1 SEC (24.3-30.1)
[2017-05-20] VITALS (20 sets, daily range): BP systolic 116–178; BP diastolic 71–103; PULSE 68–118; RESP 16–19; TEMP 97.9–98.9; O2SAT 97–99
[2017-05-20 04:03] LABS: AUTOMATED NEUTROPHIL # 3.3 TH/MM3 (1.8-7.7); BASOPHIL % 0.8 % (0.0-2.0); EOSINOPHIL % 0.5 % (0.0-4.0); HEMATOCRIT 38.7 % (35.0-46.0); HEMO FLAGS DIFF FINAL; LYMPHOCYTE # 2.1 TH/MM3 (1.0-4.8); MEAN CELL VOLUME 114.6 FL (80.0-100.0); MEAN CORPUSCULAR HGB CONC 35.8 % (32.0-36.0); MONO % 9.5 % (0.0-8.0); NEUT % 55.2 % (16.0-70.0); PLATELET COUNT 172 TH/MM3 (150-450); RED BLOOD COUNT 3.38 MIL/MM3 (4.00-5.30); RED CELL DISTRIBUTION WIDTH 17.3 % (11.6-17.2)
[2017-05-20 04:26] LABS: ALKALINE PHOSPHATASE 91 U/L (45-117); HDL CHOLESTEROL 61.9 MG/DL (40.0-60.0); TOTAL BILIRUBIN ADULT 2.6 MG/DL (0.2-1.0)
[2017-05-20 04:41] LABS: ALT (GPT) 40 U/L (10-53); ANION GAP 9 MEQ/L (5-15); AST (GOT) 86 U/L (15-37); BLOOD UREA NITROGEN 8 MG/DL (7-18); CHLORIDE 106 MEQ/L (98-107); GLOMERULAR FILTRATION RATE 110 ML/MIN (>89); LDL CHOLESTEROL 82 MG/DL (0-99); MAGNESIUM 1.1 MG/DL (1.5-2.5); SODIUM (NA) 140 MEQ/L (136-145)
[2017-05-20 04:46] LABS: POTASSIUM 3.4 MEQ/L (3.5-5.1)
--- NOTE | 2017-05-20 08:24 | PD.CARD.PN ---
Subjective Subjective Remarks denies chest pain Objective Vital Signs / I&O Vital Signs Date Time Temp Pulse Resp B/P Pulse Ox O2 Delivery O2 Flow Rate FiO2 05/20/17 06:00 78 05/20/17 05:00 78 05/20/17 04:00 69 05/20/17 04:00 98.3 76 16 136/81 99 05/20/17 03:00 94 05/20/17 02:00 68 05/20/17 01:00 74 05/20/17 00:00 97.9 75 16 116/71 98 05/20/17 00:00 83 05/19/17 23:00 68 05/19/17 22:00 72 05/19/17 21:00 74 05/19/17 20:00 63 05/19/17 20:00 98.2 74 16 155/98 99 05/19/17 11:37 148/85 05/19/17 10:50 110 17 159/100 98 Room Air 05/19/17 09:49 101 17 129/88 98 Room Air 05/19/17 09:30 17 98 Room Air 05/19/17 09:29 98.6 05/19/17 09:25 131 20 150/91 100 I/O 05/19/17 05/19/17 05/19/17 05/20/17 05/20/17 05/20/17 07:00 15:00 23:00 07:00 15:00 23:00 Intake Total 740 ml 480 ml Output Total 200 ml Balance 540 ml 480 ml Intake Oral 240 ml 480 ml IV Total 500 ml Output Urine Total 200 ml # Voids 2 # Bowel Movements 0 Physical Exam GENERAL: Well-nourished, well-developed patient in no apparent distress. NECK: No JVD. No carotid bruit. CARDIOVASCULAR: Regular rate and rhythm. S1/S2 no murmur, rub, or gallop. RESPIRATORY: No accessory muscle use. Clear to auscultation. Breath sounds equal bilaterally. GASTROINTESTINAL: Abdomen soft, non-tender, nondistended. MUSCULOSKELETAL: Extremities without clubbing, cyanosis, or edema. r. radial pulse 2+ Laboratory Laboratory Tests Test 05/19/17 05/19/17 05/20/17 09:35 20:47 03:42 White Blood Count 8.8 TH/MM3 6.0 TH/MM3 Red Blood Count 3.99 MIL/MM3 3.38 MIL/MM3 Hemoglobin 15.3 GM/DL 13.9 GM/DL Hematocrit 45.1 % 38.7 % Mean Corpuscular Volume 113.0 FL 114.6 FL Mean Corpuscular Hemoglobin 38.2 PG 41.0 PG Mean Corpuscular Hemoglobin 33.8 % 35.8 % Concent Red Cell Distribution Width 16.7 % 17.3 % Platelet Count 242 TH/MM3 172 TH/MM3 Mean Platelet Volume 8.6 FL 8.4 FL Neutrophils (%) (Auto) 66.7 % 55.2 % Lymphocytes (%) (Auto) 21.6 % 34.0 % Monocytes (%) (Auto) 7.4 % 9.5 % Eosinophils (%) (Auto) 0.1 % 0.5 % Basophils (%) (Auto) 4.2 % 0.8 % Neutrophils # (Auto) 5.8 TH/MM3 3.3 TH/MM3 Lymphocytes # (Auto) 1.9 TH/MM3 2.1 TH/MM3 Monocytes # (Auto) 0.7 TH/MM3 0.6 TH/MM3 Eosinophils # (Auto) 0.0 TH/MM3 0.0 TH/MM3 Basophils # (Auto) 0.4 TH/MM3 0.0 TH/MM3 CBC Comment DIFF FINAL DIFF FINAL Differential Comment Prothrombin Time 11.4 SEC Prothromb Time International 1.0 RATIO Ratio Activated Partial 26.8 SEC 26.1 SEC Thromboplast Time D-Dimer Quantitative (PE/DVT) 0.30 MG/L FEU Sodium Level 140 MEQ/L 140 MEQ/L Potassium Level 3.2 MEQ/L 3.4 MEQ/L Chloride Level 104 MEQ/L 106 MEQ/L Carbon Dioxide Level 27.1 MEQ/L 25.0 MEQ/L Anion Gap 9 MEQ/L 9 MEQ/L Blood Urea Nitrogen 8 MG/DL 8 MG/DL Creatinine 0.82 MG/DL 0.56 MG/DL Estimat Glomerular Filtration 71 ML/MIN 110 ML/MIN Rate Random Glucose 117 MG/DL 83 MG/DL Calcium Level 8.3 MG/DL 7.7 MG/DL Magnesium Level 1.0 MG/DL 1.1 MG/DL Total Bilirubin 3.2 MG/DL 2.6 MG/DL Aspartate Amino Transf 135 U/L 86 U/L (AST/SGOT) Alanine Aminotransferase 59 U/L 40 U/L (ALT/SGPT) Alkaline Phosphatase 119 U/L 91 U/L Total Creatine Kinase 155 U/L Creatine Kinase MB 12.2 NG/ML Troponin I 1.01 NG/ML 1.54 NG/ML 1.30 NG/ML Total Protein 7.3 GM/DL 6.2 GM/DL Albumin 4.1 GM/DL 3.2 GM/DL Thyroid Stimulating Hormone 1.190 uIU/ML 3rd Gen Triglycerides Level 81 MG/DL Cholesterol Level 160 MG/DL LDL Cholesterol 82 MG/DL HDL Cholesterol 61.9 MG/DL Cholesterol/HDL Ratio 2.58 RATIO Assessment and Plan Problem List: (1) NSTEMI (non-ST elevated myocardial infarction) (2) Hypertension Assessment and Plan Chest pain, resolved, thought to be relate to vasospasm, now on CCB Blood pressure is well controlled Evans Longoria May 20, 2017 08:24
[2017-05-20] MEDS ORDERED: POTASSIUM CHLORIDE 20 MEQ CONTROLLED RELEASE TAB PO ONE (08:30)
[2017-05-20] MEDS ORDERED: amLODIPine BESYLATE 5 MG TAB PO SCH (09:00)
[2017-05-20] MEDS ORDERED: ASPIRIN EC 81 MG TABEC PO SCH (09:00)
[2017-05-20] MEDS ORDERED: ATORVASTATIN 10 MG TAB PO SCH (09:00)
--- NOTE | 2017-05-20 09:03 | HHI.PR ---
Subjective Remarks resting comfortably with no chest pain or sob. no new complaints. Objective Vitals Vital Signs Date Time Temp Pulse Resp B/P Pulse Ox O2 Delivery O2 Flow Rate FiO2 05/20/17 06:00 78 05/20/17 05:00 78 05/20/17 04:00 69 05/20/17 04:00 98.3 76 16 136/81 99 05/20/17 03:00 94 05/20/17 02:00 68 05/20/17 01:00 74 05/20/17 00:00 97.9 75 16 116/71 98 05/20/17 00:00 83 05/19/17 23:00 68 05/19/17 22:00 72 05/19/17 21:00 74 05/19/17 20:00 63 05/19/17 20:00 98.2 74 16 155/98 99 05/19/17 11:37 148/85 05/19/17 10:50 110 17 159/100 98 Room Air 05/19/17 09:49 101 17 129/88 98 Room Air 05/19/17 09:30 17 98 Room Air 05/19/17 09:29 98.6 05/19/17 09:25 131 20 150/91 100 I/O 05/19/17 05/19/17 05/19/17 05/20/17 05/20/17 05/20/17 06:59 14:59 22:59 06:59 14:59 22:59 Intake Total 740 ml 480 ml Output Total 200 ml Balance 540 ml 480 ml Intake Oral 240 ml 480 ml IV Total 500 ml Output Urine Total 200 ml # Voids 2 # Bowel Movements 0 Result Diagram: 05/20/17 0342 05/20/17 0342 Imaging Last Impressions Chest X-Ray 05/19/1730 Signed Impressions: Service Date/Time: Friday, May 19, 2017 09:38 - CONCLUSION: Normal examination. 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 Red Grimm MD Objective Remarks GENERAL: This is a well-nourished, well-developed patient, in no apparent distress. CARDIOVASCULAR: Regular rate and regular rhythm without murmurs, gallops, or rubs. RESPIRATORY: Clear to auscultation. Breath sounds equal bilaterally. No wheezes , rales, or rhonchi. GASTROINTESTINAL: Abdomen soft, non-tender, nondistended. Normal, active bowel sounds MUSCULOSKELETAL: Extremities without clubbing, cyanosis, or edema. NEURO: Alert & Oriented x4 to person, place, time, situation. Moves all ext x4 Procedures cardiac cath. Medications and IVs Current Medications Aspirin (Aspirin Chew) 324 mg ONCE ONCE PO Last administered on 05/19/17 09: 45; Start 05/19/17 at 09:30; Stop 05/19/17 at 09:34; Status DC Sodium Chloride (NS Flush) 2 ml UNSCH PRN IVF FLUSH AFTER USING IV ACCESS; Start 05/19/17 at 09:30 Heparin Sodium (Porcine) (Heparin Inj) 3,300 units ONCE ONCE IV Last administered on 05/19/17 10:53; Start 05/19/17 at 10:45; Stop 05/19/17 at 10:46 ; Status DC Heparin Sodium (Porcine) (Heparin Inj) 5,000 units UNSCH PRN IV APTT LESS THAN 25; Start 05/19/17 at 16:45; Stop 05/19/17 at 16:45; Status DC Heparin Sodium (Porcine) 2500 units 2,500 units UNSCH PRN IV APTT 25 TO 39; Start 05/19/17 at 16:45; Stop 05/19/17 at 16:45; Status DC Heparin Sodium/ Dextrose (Heparin-D5W Inj) 250 ml @ 0 mls/hr TITRATE IV Last administered on 05/19/17 10:55; Start 05/19/17 at 10:45; Stop 05/19/17 at 15:24 ; Status DC Metoprolol Tartrate 25 mg 25 mg ONCE ONCE PO Last administered on 05/19/17 10 :50; Start 05/19/17 at 10:45; Stop 05/19/17 at 10:46; Status DC Potassium Chloride 20 meq/ Sodium Chloride 1,010 ml @ 100 mls/hr Q10H6M IV ; Start 05/19/17 at 11:15; Stop 05/19/17 at 15:24; Status DC Magnesium Sulfate/ Dextrose (Magnesium Sulfate 1 Gm Premix) 100 ml @ 100 mls/ hr ONCE ONCE IV ; Start 05/19/17 at 11:15; Stop 05/19/17 at 12:14; Status DC Flumazenil (Romazicon Inj) 0.2 mg Q1M PRN IV PUSH SEE LABEL COMMENTS; Start at 11:15 Lorazepam (Ativan) 1 mg Q4H PRN PO CIWA 8 - 10 Last administered on 05/20/17 08:50; Start 05/19/17 at 11:15 Lorazepam (Ativan Inj) 1 mg Q4H PRN IV PUSH CIWA 8 - 10; Start 05/19/17 at 11: 15 Lorazepam (Ativan) 2 mg Q2H PRN PO CIWA 11-14; Start 05/19/17 at 11:15 Lorazepam (Ativan Inj) 2 mg Q2H PRN IV PUSH CIWA 11-14; Start 05/19/17 at 11:15 Lorazepam (Ativan Inj) 2 mg Q1H PRN IV PUSH CIWA 15-20; Start 05/19/17 at 11:15 Lorazepam 2 mg 2 mg Q15M PRN IV PUSH CIWA > 20; Start 05/19/17 at 11:15 Sodium Chloride 1,000 ml @ 30 mls/hr Q24H IV ; Start 05/19/17 at 12:45 Heparin Sodium/ Sodium Chloride (Heparin-NS/Pf Inj) 500 ml @ As Directed STK- MED ONCE .ROUTE Last administered on 05/19/17 14:36; Start 05/19/17 at 14:36; Stop 05/19/17 at 14:37; Status DC Midazolam HCl (Versed Inj) 2 mg STK-MED ONCE .ROUTE Last administered on 14:37; Start 05/19/17 at 14:37; Stop 05/19/17 at 14:38; Status DC Fentanyl Citrate (fentaNYL INJ) 100 mcg STK-MED ONCE .ROUTE Last administered on 05/19/17 14:37; Start 05/19/17 at 14:37; Stop 05/19/17 at 14:38; Status DC Heparin Sodium (Porcine) 70129 units 10,000 units STK-MED ONCE .ROUTE Last administered on 05/19/17 14:37; Start 05/19/17 at 14:37; Stop 05/19/17 at 14:38 ; Status DC Nitroglycerin (Nitroglycerin Inj) 5 ml @ As Directed STK-MED ONCE .ROUTE Last administered on 05/19/17 14:37; Start 05/19/17 at 14:37; Stop 05/19/17 at 14:38 ; Status DC Midazolam HCl (Versed Inj) 2 mg STK-MED ONCE .ROUTE Last administered on 15:02; Start 05/19/17 at 15:02; Stop 05/19/17 at 15:03; Status DC Midazolam HCl (Versed Inj) 2 mg STK-MED ONCE .ROUTE Last administered on 15:07; Start 05/19/17 at 15:07; Stop 05/19/17 at 15:08; Status DC Fentanyl Citrate (fentaNYL INJ) 100 mcg STK-MED ONCE .ROUTE Last administered on 05/19/17 15:07; Start 05/19/17 at 15:07; Stop 05/19/17 at 15:08; Status DC Miscellaneous Information 1 ONCE ONCE XX ; Start 05/19/17 at 15:30; Stop at 15:34; Status DC Bacitracin (Bacitracin Oint Packet) 0.9 gm ONCE ONCE TOP ; Start 05/19/17 at 16 :00; Stop 05/19/17 at 16:01; Status DC Aspirin (Ecotrin Ec) 81 mg DAILY PO Last administered on 05/20/17 08:42; Start 05/20/17 at 09:00 Atorvastatin Calcium (Lipitor) 10 mg DAILY PO Last administered on 05/20/17 08 :42; Start 05/20/17 at 09:00 Amlodipine Besylate (Norvasc) 2.5 mg DAILY PO Last administered on 05/20/17 08 :42; Start 05/20/17 at 09:00 Miscellaneous (Pill Splitter) 1 ea UNSCH PRN OTHER SEE LABEL COMMENTS; Start at 15:45 Iohexol (OMNIPAQUE 350 INJ ([place])) 50 ml STK-MED ONCE OTHER ; Start at 17:20; Stop 05/19/17 at 17:21; Status DC Potassium Chloride (KCl) 20 meq ONCE ONCE PO Last administered on 05/20/17 08 :50; Start 05/20/17 at 08:30; Stop 05/20/17 at 08:35; Status DC A/P Assessment and Plan A/P - elevated troponin- s/p cardiac cath with : 1. Mild nonobstructive coronary artery disease. 2. Hyperdynamic left ventricular systolic function with normal left-sided filling pressures. elevated troponin believed to be caused by either vasospasm vs demand- mediated. cleared by cardiology for discharge. continue aspirin, statin and CCB. -hypokalemia/hypomagnesemia; will replace and monitor -alcohol abuse; watch for withdrawal- started on CIWA protocol- -elevated LFT's- due to alcohol- will monitor Discharge Planning possible dc home this afternoon. see med list. f/u ; pcp and cardiology. d/w the patient and RN. Rin Thomas MD May 20, 2017 09:03
[2017-05-20] MEDS ORDERED: LIPI10TA PO (09:09)
[2017-05-20] MEDS ORDERED: AMLO5 PO (09:09)
[2017-05-20] MEDS ORDERED: ASPI-99 PO (09:09)
--- NOTE | 2017-05-20 09:09 | HHI.DCPOC ---
Discharge Care Plan Diagnosis: (1) NSTEMI (non-ST elevated myocardial infarction) Your Health Problems Are: Chest Pain Goals to Promote Your Health * To prevent worsening of your condition and complications * To maintain your health at the optimal level Directions to Meet Your Goals Take your medications as prescribed Follow your dietary instruction Follow activity as directed Keep your appointments as scheduled Take your immunizations and boosters as scheduled If your symptoms worsen call your PCP, if no PCP go to Urgent Care Center or Emergency Room Smoking is Dangerous to Your Health. Avoid second hand smoke Call the 24-hour hour crisis hotline for domestic abuse at Rin Thomas MD May 20, 2017 09:09
--- NOTE | 2017-05-20 09:10 | HHI.DS ---
Discharge Summary Admission Date May 19, 2017 at 10:59 Discharge Date: May 20, 2017 Admitting Diagnosis NSTEMI (1) NSTEMI (non-ST elevated myocardial infarction) ICD Code: I21.4 Diagnosis: Principal Procedures cardiac cath. Brief History - From Admission patient is a 61 y/o female who presented to ER with chest pain. she says that she started to have some palpitation last night. she had some ' chest pressure and discomfort' at the time. it lasted till this morning. pain was associated with nausea, sob and diaphoresis. she says that this morning when she woke up she couldn't keep her balance when she decided to come to ER. she denies any chest pain in the past. CBC/BMP: 05/20/17 0342 05/20/17 0342 Significant Findings Laboratory Tests Test 05/19/17 05/19/17 05/20/17 09:35 20:47 03:42 Red Blood Count 3.99 MIL/MM3 3.38 MIL/MM3 (4.00-5.30) (4.00-5.30) Mean Corpuscular Volume 113.0 FL 114.6 FL (80.0-100.0) (80.0-100.0) Mean Corpuscular Hemoglobin 38.2 PG 41.0 PG (27.0-34.0) (27.0-34.0) Basophils (%) (Auto) 4.2 % (0.0-2.0) Basophils # (Auto) 0.4 TH/MM3 (0-0.2) Potassium Level 3.2 MEQ/L 3.4 MEQ/L (3.5-5.1) (3.5-5.1) Estimat Glomerular Filtration 71 ML/MIN (>89) Rate Random Glucose 117 MG/DL (74-106) Calcium Level 8.3 MG/DL 7.7 MG/DL (8.5-10.1) (8.5-10.1) Magnesium Level 1.0 MG/DL 1.1 MG/DL (1.5-2.5) (1.5-2.5) Total Bilirubin 3.2 MG/DL 2.6 MG/DL (0.2-1.0) (0.2-1.0) Aspartate Amino Transf 135 U/L (15-37) 86 U/L (15-37) (AST/SGOT) Alanine Aminotransferase 59 U/L (10-53) (ALT/SGPT) Alkaline Phosphatase 119 U/L (45-117) Creatine Kinase MB 12.2 NG/ML (0.5-3.6) Troponin I 1.01 NG/ML 1.54 NG/ML 1.30 NG/ML (0.02-0.05) (0.02-0.05) (0.02-0.05) Red Cell Distribution Width 17.3 % (11.6-17.2) Monocytes (%) (Auto) 9.5 % (0.0-8.0) Total Protein 6.2 GM/DL (6.4-8.2) Albumin 3.2 GM/DL (3.4-5.0) HDL Cholesterol 61.9 MG/DL (40.0-60.0) Imaging Last Impressions Chest X-Ray 05/19/17 0930 Signed Impressions: Service Date/Time: Friday, May 19, 2017 09:38 - CONCLUSION: Normal examination. 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 Red Grimm MD PE at Discharge GENERAL: This is a well-nourished, well-developed patient, in no apparent distress. CARDIOVASCULAR: Regular rate and regular rhythm without murmurs, gallops, or rubs. RESPIRATORY: Clear to auscultation. Breath sounds equal bilaterally. No wheezes , rales, or rhonchi. GASTROINTESTINAL: Abdomen soft, non-tender, nondistended. Normal, active bowel sounds MUSCULOSKELETAL: Extremities without clubbing, cyanosis, or edema. NEURO: Alert & Oriented x4 to person, place, time, situation. Moves all ext x4 Hospital Course - elevated troponin- s/p cardiac cath with : 1. Mild nonobstructive coronary artery disease. 2. Hyperdynamic left ventricular systolic function with normal left-sided filling pressures. elevated troponin believed to be caused by either vasospasm vs demand- mediated. cleared by cardiology for discharge. continue aspirin, statin and CCB. -hypokalemia/hypomagnesemia; will replace and monitor -alcohol abuse; watch for withdrawal- started on CIWA protocol- -elevated LFT's- due to alcohol- will monitor Pt Condition on Discharge: Good Discharge Disposition: Discharge Home Discharge Time: <= 30 minutes Discharge Instructions DIET: Follow Instructions for: Heart Healthy Diet Activities you can perform: Regular-No Restrictions Follow up Referrals: Cardiology PCP Follow-up New Medications: Amlodipine (Norvasc) 5 Mg Tab 2.5 MG PO DAILY hypertension Days 30 Ref [address] (Adult Aspirin EC Low Strength) 81 Mg Tabec 81 MG PO DAILY antiplatelet Days 30 Ref 0 TAB Atorvastatin (Lipitor) 10 Mg Tab 10 MG PO DAILY statin Days 30 Ref 0 TAB Continued Medications: Hydrocodone-Acetaminophen (Hydrocodone-Acetaminophen) 10-325 mg Tab 1 TAB PO Q4H PRN PAIN Ref 0 TAB Rin Thomas MD May 20, 2017 09:10
[2017-05-20] MEDS: MAGNESIUM SULFATE 1 GM PREMIX 100 ML IV SCH ×2 (10:23→12:20)
== END 2017-05-20 17:49 | disposition home or self-care (01) | DRG 287 ==
LOC: PHED 09:13 → PHEDA 10:59 → HCIS 15:56
PROVIDERS: ADMIT Internal Medicine; ATTEND Internal Medicine
PROC: B2111ZZ Fluoroscopy of Multiple Coronary Arteries using Low Osmolar Contrast (ICD-10-PCS; 2017-05-19)
PROC: B2151ZZ Fluoroscopy of Left Heart using Low Osmolar Contrast (ICD-10-PCS; 2017-05-19)
PROC: 4A023N7 Measurement of Cardiac Sampling and Pressure, Left Heart, Percutaneous Approach (ICD-10-PCS; principal; 2017-05-19 14:45)
DX: I25.111 Atherosclerotic heart disease of native coronary artery with angina pectoris with documented spasm (principal); Q24.5 Malformation of coronary vessels; E83.42 Hypomagnesemia; I10 Essential (primary) hypertension; M45.9 Ankylosing spondylitis of unspecified sites in spine; D16.02 Benign neoplasm of scapula and long bones of left upper limb; E87.6 Hypokalemia; F10.10 Alcohol abuse, uncomplicated; F17.210 Nicotine dependence, cigarettes, uncomplicated; Y90.9 Presence of alcohol in blood, level not specified; Z82.49 Family history of ischemic heart disease and other diseases of the circulatory system
CPT/HCPCS: 71010; 80053; 80061; 82550; 82552; 83735; 84443; 84484; 85025; 85379; 85610; 85730; 93005; 93458; 96374; 96375; C1769; C1893; J1644; J2250; J3010; J3475; Q9967